=== PATIENT | male | born 1970 | race Caucasian/White ===

== ENCOUNTER → 2022-01-31 01:23 | Outpatient (CLI) | payer MEDICAID, SELFPAY ==
[2022-01-31 19:06] LABS: Basophils # 0.1 K/mm3 (0-0.2); Basophils % 0.9 % (0.1-2.0); Eosinophils # 0.2 K/mm3 (0.0-0.4); Eosinophils % 2.7 % (0.1-12.0); Hematocrit 43.2 % (42.0-52.0); Hemoglobin 14.6 g/dL (14.1-18.0); Lymphocytes # 1.6 K/mm3 (0.7-4.5); Lymphocytes % 29.1 % (10-50); Mean Corpuscular HGB Conc 33.7 g/dL (31.8-35.4); Mean Corpuscular Volume 86.1 fl (80-94); Mean Platelet Volume 9.9 fl (7.4-10.4); Monocytes # 0.4 K/mm3 (0.1-1.0); Monocytes % 6.5 % (1.7-9.3); Neutrophils # 3.4 K/mm3 (1.8-7.8); Neutrophils % 60.9 % (37.0-80.0); Platelet Count 161 K/mm3 (142-424); Red Blood Count 5.02 M/mm3 (4.60-6.20); White Blood Count 5.5 K/mm3 (4.8-10.8)
[2022-01-31 21:13] LABS: Chloride 108 mmol/L (98-107); Potassium 3.8 mmoL/L (3.5-5.1); Sodium 139 mmol/L (136-145)
[2022-01-31 21:16] LABS: Alanine Aminotransferase 26 U/L (12-78); Albumin Level 4.2 g/dl (3.5-5.0); Albumin/Globulin Ratio 1.6 (1.1-1.8); Alkaline Phosphatase 76 U/L (38-126); Anion Gap 9.8 mEq/L (5-15); Aspartate Amino Transferase 28 U/L (17-59); Bilirubin,Total 1.2 mg/dl (0.2-1.3); Blood Urea Nitrogen 13 mg/dl (9-20); Calcium 9.2 mg/dl (8.4-10.2); Carbon Dioxide 25 mmol/L (22.0-30.0); Chol/HDL Ratio 6.3 (1-3.5); Cholesterol 202 mg/dl (140-200); Estimated Glomerular Filt Rate 78 ml/min (>60); GFR (African American) 95 ML/MIN (>60); Globulin 2.7 g/dL (1.3-3.2); Glucose 95 mg/dl (74-100); HDL Cholesterol 32 mg/dl (40-60); Total Protein,Serum 6.9 g/dl (6.3-8.2); Triglycerides 358 mg/dl (30-150); VLDL Cholesterol 72 mg/dL (0-40)
[2022-01-31 22:37] LABS: Thyroid Stimulating Hormone < 0.02 uIU/mL (0.465-4.68)
== END ==
PROVIDERS: PCP Nurse Practitioner Family; Visit Provider Nurse Practitioner Family
DX: E03.9 Hypothyroidism, unspecified (principal)
CPT/HCPCS: 80053; 80061; 84443; 85025

== ENCOUNTER → 2022-06-17 23:45 | Outpatient (CLI) | payer MEDICAID, SELFPAY ==
[2022-06-17 18:16] LABS: Basophils # 0.1 K/mm3 (0-0.2); Basophils % 0.6 % (0.1-2.0); Eosinophils # 0.3 K/mm3 (0.0-0.4); Eosinophils % 3.1 % (0.1-12.0); Hematocrit 49.8 % (42.0-52.0); Lymphocytes # 2.1 K/mm3 (0.7-4.5); Lymphocytes % 24.2 % (10-50); Mean Corpuscular HGB Conc 34.1 g/dL (31.8-35.4); Mean Corpuscular Hemoglobin 29.6 pg (27.0-31.2); Mean Corpuscular Volume 86.7 fl (80-94); Mean Platelet Volume 9.4 fl (7.4-10.4); Monocytes # 0.5 K/mm3 (0.1-1.0); Monocytes % 5.7 % (1.7-9.3); Neutrophils # 5.9 K/mm3 (1.8-7.8); Neutrophils % 66.3 % (37.0-80.0); Platelet Count 162 K/mm3 (142-424); Red Blood Count 5.74 M/mm3 (4.60-6.20); White Blood Count 8.9 K/mm3 (4.8-10.8)
[2022-06-17 18:31] LABS: Chloride 103 mmol/L (98-107); Potassium 4.9 mmoL/L (3.5-5.1); Sodium 140 mmol/L (136-145)
[2022-06-17 18:34] LABS: Anion Gap 16.9 mEq/L (5-15); Blood Urea Nitrogen 19 mg/dl (9-20); Carbon Dioxide 25 mmol/L (22.0-30.0); Estimated Glomerular Filt Rate 70 ml/min (>60); GFR (African American) 84 ML/MIN (>60)
[2022-06-17 18:35] LABS: Calcium 9.4 mg/dl (8.4-10.2); Glucose 82 mg/dl (74-100)
[2022-06-17 19:05] LABS: Thyroid Stimulating Hormone 2.71 uIU/mL (0.465-4.68)
== END ==
PROVIDERS: PCP Family Medicine; Visit Provider Family Medicine
DX: Z00.00 Encounter for general adult medical examination without abnormal findings (principal); E03.9 Hypothyroidism, unspecified; I10 Essential (primary) hypertension; R80.9 Proteinuria, unspecified
CPT/HCPCS: 80048; 84443; 85025

== ENCOUNTER 2024-09-13 14:31 | Outpatient (CLI) | payer OTHER, MEDICAID, SELFPAY ==
--- NOTE | 2024-09-13 14:38 | XR_ITS ---
FINAL REPORT CLINICAL HISTORY: Left Foot Pain FINDINGS: LEFT FOOT Three views of the left foot demonstrate no acute fracture or dislocation. The visualized joint spaces are normally aligned. There are moderate degenerative changes of the hind and midfoot. There is mild calcaneal spurring. The soft tissues are unremarkable. IMPRESSION: No acute bony abnormality. Reviewed, Interpreted and Dictated by Johnny Zavala MD Transcribed by Jacquie Loera Authenticated and [facility]
--- OUTSIDE RECORDS SUMMARY | 2024-09-13 14:38 | XMS_ITS | Encounter Summary ---
Author Organization Healthcare Address [address] [place] [address] Care Team Providers Care Press Tender Short Goods Name Role Phone Gene Ordonez MD Primary Care Provider Nini vailable Reason for Visit * Reason Comments Med Refill Encounter Details Date Type Department Care Team ([facility] Contact Info) Description 06/10/2024 Refill [facility] [place] [address] [address] [facility] [address] [facility], [address] [place] [address] Sofia Novak MD [address] [phone] Social History Tobacco Use Types Packs/Day Years Used Date Smoking Tobacco: Never Assessed Humiliation, Afraid, Rape, and Kick questionnair e Answer Date Recorded Within the last year, have y ou been afraid of your partner or ex-partner? No 06/04/2023 Within the last year, have y ou been humiliated or emotionally abused in other ways by your partner or ex-partner? No Within the last year, have y ou been kicked, hit, slapped, or otherwise physically hurt by your partner or ex-partner? No 06/04/2023 Within the last year, have y ou been raped or forced to have any kind of sexual activity by your partner or ex-partner? No 06/04/2023 Hunger Vital Sign Answer Date Recorded Within the past 12 months, y ou worried that your food would run out before you got the money to buy more. Never true 06/04/19 24 Within the past 12 months, t he food you bought just didn't last and you didn't have money to get more. Never true 06/04/2023 PRAPARE - Transportation Answer Date Re corded In the past 12 months, has l ack of transportation kept you from medical appointments or from getting medications? No 05/2023 In the past 12 months, has l ack of transportation kept you from meetings, work, or from getting things needed for daily living? No 06/04/2023 Housing Stability Vital Sign Answer Wally e Recorded In the last 12 months, was t here a time when you were not able to pay the mortgage or rent on time? No 06/04/2023 Number of Places Lived in the Last Year Not on f ile 06/04/2023 In the last 12 months, was t here a time when you did not have a steady place to sleep or slept in a fci (including now)? No 06/04/2023 Utilities Answer Date Recorded In the past 12 months has th e electric, gas, oil, or water company threatened to shut off services in your home? No 06/04/2023 Sex and Gender Information Value Date Recorded Sex Assigned at Not on file Legal Sex Male 8:57 PM EDT Gender Identity Not on file Sexual Orientation Not on file documented as of this encounter Plan of Treatment Not on file documented as of this encounter Visit Diagnoses Not on filedocumented in this encounter Additional Health Concerns Assessment Noted Time A Body Mass Index follow-up plan has been documented for the patient 06/04/2023 3:42 PM EDT documented as of this encounter Care Teams Press Tender Short Goods Relationship Specialty Start Date End Date Gene Ordonez MD PCP - General Family Medicine 06/03/23 documented as of this encounter
--- OUTSIDE RECORDS SUMMARY | 2024-09-13 14:38 | XMS_ITS | Encounter Summary ---
Author Organization Healthcare Address [address] [place] [address] Care Team Providers Care Assistance Coordinator Name Role Phone Gene Ordonez MD Primary Care Provider Nini vailable Reason for Visit * Reason Comments Med Refill Encounter Details Date Type Department Care Team ([facility] Contact Info) Description 07/13/2024 Refill [facility] [place] [phone] [address] [facility], [address] [place] [address] Sofia Novak MD [address] [phone] Social History Tobacco Use Types Packs/Day Years [...] place to sleep or slept in a care home (including now)? No 06/04/2023 Utilities Answer Date [...] documented as of this encounter Care Teams Assistance Coordinator Relationship Specialty Start Date End Date Gene Ordonez MD PCP - General Family Medicine 06/03/23 documented as of this encounter
--- OUTSIDE RECORDS SUMMARY | 2024-09-13 14:38 | XMS_ITS | Clinical Summary ---
Author Organization Healthcare Address [address] [place] [address] Care Team Providers Care Premium Note Interest Calculator Clerk Name Role Phone Gene Ordonez MD Primary Care Provider Nini vailable Allergies No known active allergies Medications levothyroxine (Synthroid, Levoxyl) 150 MCG tablet Take 1 tablet (150 mcg) by mouth 1 (one) time each day before breakfast. Active atorvastatin (Lipitor) 80 MG tablet Take 1 tablet (80 mg) by mouth every night. 90 tablet 3 06/04/2023 Active aspirin 81 MG chewable tablet Chew 1 tablet (81 mg) 1 (one) time each day. 90 tablet 3 06/05/2023 Active Active Problems Problem Noted Date Diagnosed Date Syncope and collapse 06/03/2023 Encounters Date Type Department Care Team Description 07/13/2024 Refill [facility] [place] [address] [facility], [address] [place] [address] Sofia Novak MD from Last 3 Months Social History Tobacco Use Types Packs/Day Years [...] place to sleep or slept in a long term (including now)? No 06/04/2023 Utilities Answer Date Recorded In the past 12 months has th e electric, gas, oil, or water company threatened to shut off services in your home? No 06/04/2023 Sex and Gender Information Value Date Recorded Sex Assigned at Not on file Legal Sex Male 8:57 PM EDT Gender Identity Not on file Sexual Orientation Not on file Last Filed Vital Signs Vital Sign Reading Time Taken Comments Blood Pressure 144/97 06/04/2023 12:49 PM EDT Pulse 78 06/04/2023 3:00 PM EDT Temperature 36.8 C (98.3 F) 06/04/2023 12:49 PM EDT Respiratory Rate 19 06/04/2023 3:00 PM EDT Oxygen Saturation 93% 06/04/2023 3:00 PM EDT Inhaled Oxygen Concentration - - Weight 145 kg (320 lb) 06/03/2023 12:56 PM EDT Height 188 cm (6' 2 ) 06/03/2023 12:56 PM EDT Body Mass Index 41.09 06/03/2023 12:56 PM EDT Plan of Treatment Health Maintenance Due Date Last Done Comments [facility]-Depression Screening 1968 [facility]-Infant/Child/Adol SDOH Screenings 1968 [id number] Vaccine (#1) 1973 [facility]- SDOH Screenings 1986 [facility]-Adult SDOH Screenings 1986 [facility]-DTaP,Tdap,and Td Vaccine s (1 - Tdap) 05/11/1987 [facility]-Hepatitis B Vaccines (1 of 3 - 19+ 3-dose series) 05/11/1987 CT Colonography 2013 Colonoscopy 2013 FIT-DNA 2013 FIT 2013 FOBT 2013 Sigmoidoscopy 2013 [facility]-Colorectal Cancer Screening 2013 [facility]-Pneumococcal Vaccine: 50 + Years (1 of 1 - PCV) 2018 [facility]-Zoster Vaccines (1 of 2) 2018 [facility]-Influenza Vaccine (#1) 2024 02/08/2019 [facility]-HIV Screening Completed 06/03/2023 [facility]-Hepatitis C Screening Completed 06/03/2023 [facility]-Obesity Intervention Completed 06/03/2023 HPV Vaccines Aged Out No longer eligi ble based on patient's age to complete this topic [facility]-HIB Vaccines Aged Out No longer e ligible based on patient's age to complete this topic [facility]-Hepatitis A Vaccines Aged Out No longer eligible based on patient's age to complete this topic [facility]-IPV Vaccines Aged Out No longer e ligible based on patient's age to complete this topic [facility]-Rotavirus Vaccines Aged Out No lo nger eligible based on patient's age to complete this topic Procedures Procedure Name Priority Date/Time Associated Diagnosis Comments HEPATITIS C ANTIBODY - ED W/REFLEX TO HCV QUANT PCR STAT 06/03/2023 1:22 PM EDT ED HIV 1/2 ANTIBODY/ANTIGEN SCREEN WITH REFLEX TO HIV I/II DIFFERENTIATION STAT 06/03/2023 1:22 PM EDT from Last 3 Months or Most Recently Relevant to Health Maintenance Results * ED HIV 1/2 Antibody/Antigen Screen w/Reflex to HIV 1/2 Differentiation (06/03/2023 1:22 PM EDT) Pathologist [facility] HIV 1 & 2 Antibody/Antigen Screen Non Reactive Non Reactive 06/03/2023 2:30 PM EDT [facility] Comment:Screening for HIV 1 & 2 antibodies, and P24 antigen is NONREACTIVE. No confirmatory testing is required. Blood Venous blood specimen / Unknown Venipuncture / Unknown 06/03/2023 1:22 PM EDT 06/03/2023 1:50 PM EDT Bassem Mccarthy MD LAB BLOOD ORDERABLES Final R esult Performing Organization Address City/[facility] Co de Phone Number [facility]ALTH[facility]ARE [facility] [address] [place] [address] * Hepatitis C Antibody - ED (06/03/2023 1:22 PM EDT) [facility] Hepatitis C Antibody Negative Negative 06/03/2023 2:30 PM EDT [facility] Blood Venous blood specimen / Unknown Venipuncture / Unknown 06/03/2023 1:22 PM EDT 06/03/2023 1:50 PM EDT Bassem Mccarthy MD LAB BLOOD ORDERABLES Final R esult Performing Organization Address City/State/[facility] Co de Phone Number [facility] [address] [place] [address] from Last 3 Months or Most Recently Relevant to Health Maintenance Insurance Advance Directives * Full Code (Latest Code Status on File) Date Activated Date Inactivated Comments 06/03/2023 9:14 PM 06/04/2023 6:01 PM Question Answer Comments Patient has decision-making capacity? Yes Care Teams Premium Note Interest Calculator Clerk Relationship Specialty Start Date End Date Gene Ordonez MD PCP - General Family Medicine 06/03/23
== END 2024-09-13 23:59 | disposition home or self-care (01) ==
LOC: RAD 14:35
PROVIDERS: Visit Provider Physician Assistant
DX: M79.672 Pain in left foot (principal)
CPT/HCPCS: 73630

== ENCOUNTER 2024-12-22 10:40 | Emergency (ER) | payer SELFPAY ==
[2024-12-22] VITALS (12 sets, daily range): BP systolic 105–176; BP diastolic 68–125; PULSE 57–83; RESP 18; TEMP 37.1–37.2; O2SAT 95–100; BMI 29.3
[2024-12-22 10:50] LABS: Microscopic, Urine URINE MICROSCOPIC (MICROSCOPIC)
[2024-12-22 10:53] LABS: Bilirubin,Urine Negative (Negative); Color,Urine YELLOW (Yellow); Glucose,Urine (UA) Negative (Negative); Ketones,Urine TRACE (Negative); Leukocyte Esterase,Urine Negative (Negative); PH,Urine 6.0 (5.0-8.5); Protein,Urine 1+ (Negative); Specific Gravity, Urine 1.025 (1.005-1.030); Urobilinogen,Urine 0.2 EU/dl (0.2)
[2024-12-22 11:02] LABS: Bacteria,Urine Trace /lpf; Squamous Epithelial Cell,Urine Occasional #/hpf (0-5)
--- NOTE | 2024-12-22 11:04 | CT_ITS ---
FINAL REPORT TECHNIQUE: IV contrast enhanced exam This study was performed with techniques to keep radiation doses as low as reasonably achievable, (ALARA). Individualized dose reduction techniques using automated exposure control or adjustment of mA and/or kV according to the patient''s size were employed. CLINICAL HISTORY: Bloody stools, bloating, belching COMPARISON: None FINDINGS: Abdomen: No acute density is seen within the lung bases. The gallbladder is unremarkable. There is mild enlargement of the left adrenal gland, probably due to hyperplasia or adenoma. Benign-appearing bilateral renal cysts are noted. The remaining solid abdominal organs are unremarkable. No bowel obstruction is present. There is no free air. No fluid collection is seen. There is no adenopathy. Pelvis: The appendix is normal. Mild sigmoid diverticulosis is noted. The urinary bladder and prostate are unremarkable. There is no free fluid. No pelvic mass is seen. IMPRESSION: No acute findings. Reviewed, Interpreted and Dictated by Johnny Zavala MD Transcribed by Nishi Lopez Authenticated and [facility]
--- NOTE | 2024-12-22 11:04 | XR_ITS ---
FINAL REPORT CLINICAL HISTORY: Belching, left shoulder pain FINDINGS: No acute pulmonary opacity is present. There is no evidence of effusion or pneumothorax. Mediastinum is unremarkable. Heart size is normal. IMPRESSION: No acute abnormality. Reviewed, Interpreted and Dictated by Johnny Zavala MD Transcribed by Alejandrina Bae Authenticated and [facility]
--- OUTSIDE RECORDS SUMMARY | 2024-12-22 11:05 | XMS_ITS | Encounter Summary ---
Author Organization Healthcare Address [address] [place] [address] Care Team Providers Care Plant Physiology Teacher Name Role Phone Gene Ordonez MD Primary Care Provider Nini vailable Reason for Visit * Reason Comments Med Refill Encounter Details Date Type Department Care Team ([facility] Contact Info) Description 07/13/2024 Refill [facility] [place] [address] [facility], [address] [place] [address] Sofia Novak MD [address] [phone] Social History Tobacco Use Types Packs/Day Years [...] place to sleep or slept in a snf (including now)? No 06/04/2023 Utilities Answer Date [...] documented as of this encounter Care Teams Plant Physiology Teacher Relationship Specialty Start Date End Date Gene Ordonez MD PCP - General Family Medicine 06/03/23 documented as of this encounter
--- OUTSIDE RECORDS SUMMARY | 2024-12-22 11:05 | XMS_ITS | Encounter Summary ---
Author Organization Healthcare Address [address] [place] [address] Care Team Providers Care Sole Edge Inker Machine Name Role Phone Gene Ordonez MD Primary Care Provider Nini vailable Reason for Visit * Reason Comments Med Refill Encounter Details Date Type Department Care Team ([facility] Contact Info) Description 06/10/2024 Refill [facility] [place] [address] [facility], [address] [place] [address] Sofia Novak MD [address] [phone] Social History Tobacco Use Types Packs/Day Years [...] place to sleep or slept in a correction (including now)? No 06/04/2023 Utilities Answer Date [...] documented as of this encounter Care Teams Sole Edge Inker Machine Relationship Specialty Start Date End Date Gene Ordonez MD PCP - General Family Medicine 06/03/23 documented as of this encounter
--- OUTSIDE RECORDS SUMMARY | 2024-12-22 11:05 | XMS_ITS | Clinical Summary ---
Author Organization Healthcare Address [address] [place] [address] Care Team Providers Care Data Migration Lead Name Role Phone Gene Ordonez MD Primary [...] 90 tablet 3 06/05/2023 Active Active Problems No known active problems Resolved Problems Problem Noted Date Diagnosed Date Resolved Date Syncope and collapse 06/03/2023 025 Social History Tobacco Use Types Packs/Day Years [...] place to sleep or slept in a skilled nursing (including now)? No 06/04/2023 Utilities Answer Date [...] [facility]-Depression Screening 1968 [facility]-Infant/Child/Adol SDOH Screenings 1968 [id number] Vaccine (#1) 1973 [facility]- SDOH Screenings 1986 [...] HIV 1/2 Differentiation (06/03/2023 1:22 PM EDT) HIV 1 & 2 Antibody/Antigen Screen Non Reactive Non Reactive 06/03/2023 2:30 PM EDT [facility] Comment:Screening for HIV 1 & 2 antibodies, and P24 antigen is NONREACTIVE. No confirmatory testing is required. Blood Venous blood specimen / Unknown Venipuncture / Unknown 06/03/2023 1:22 PM EDT 06/03/2023 1:50 PM EDT Bassem Mccarthy MD LAB BLOOD ORDERABLES Final R esult [facility] [address] [place] [address] * Hepatitis C Antibody - ED (06/03/2023 1:22 PM EDT) [facility] Hepatitis C Antibody Negative Negative 06/03/2023 2:30 PM EDT [facility] Blood Venous blood specimen / Unknown Venipuncture / Unknown 06/03/2023 1:22 PM EDT 06/03/2023 1:50 PM EDT Bassem Mccarthy MD LAB BLOOD ORDERABLES Final R esult Performing Organization Address City/[facility] Co de Phone Number [facility]ALTH[facility] [address] [place] [address] from Last 3 Months or Most Recently Relevant to [place] [address] Advance Directives * Full Code (Latest Code Status on File) Date Activated Date Inactivated Comments 06/03/2023 9:14 PM 06/04/2023 6:01 PM Question Answer Comments Patient has decision-making capacity? Yes Care Teams Data Migration Lead Relationship Specialty Start Date End Date Gene Ordnoez MD PCP - General Family Medicine 06/03/23
--- NOTE | 2024-12-22 11:07 | [facility].EDGENADL ---
Discharge Plan Disposition Patient Disposition: Home, Self-Care Condition: Fair Prescriptions Prescriptions: New famotidine [Pepcid] 20 mg tablet 20 mg PO DAILY Qty: 30 0RF No Action promethazine 25 mg tablet 25 mg PO TID PRN (Reason: nausea and vomiting) Qty: 20 0RF atorvastatin 80 mg tablet 80 mg PO HS Qty: 90 0RF diclofenac sodium 75 mg tablet,delayed release (DR/EC) 75 mg PO BID Qty: 30 0RF levothyroxine 150 mcg tablet 150 mcg PO DAILY Qty: 90 0RF lisinopril 20 mg tablet See Rx Instructions .ROUTE .COMPLEX Qty: 90 1RF Dose Instruction: TAKE 1 TABLET BY MOUTH DAILY Rx Instructions: TAKE 1 TABLET BY MOUTH DAILY Referrals Follow up/Referrals: Cody Adan II, MD [Staff Physician, Gastroenterology] - See instructions Gene Ordonez MD [Primary Care Provider, Internal Medicine] - See instructions Activity Restrictions/Add. Instructions Additional Instructions/Restrictions: Your workup today although revealed mildly elevated bilirubin but CT scan is reassuring. I am referring you to Dr. Adan with gastroenterology for follow-up regarding your symptoms. Call their office to schedule an appointment. I am prescribing Pepcid for you to take to help with reflux as this could be contributing to your symptoms. If you develop any new or worsening symptoms, or if you become concerned for your health for any reason, return to the emergency department for evaluation Clinical Impressions Clinical Impression: Belching, Unintentional weight loss, Elevated bilirubin Print Language Print Language: Belarusian Discharge ED Provider: Shaheed Washington Adult HPI General Chief complaint: Weakness Stated complaint: weight loss, nausea, blood in stool, chills Time Seen by Provider: 12/22/24 10:52 Mode of Arrival: Ambulatory Source of Information: Patient Description of Symptoms (Recalled from ER Triage Doc. by RN): Patient with multiple complaints. States he saw his PCP approx 2 weeks ago with the complaint of blood in his stool and jaw pain. 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 Reports returning to his doctor yesterday with the complaint of losing 20 pounds in 2 weeks and being cold all the time. Today he states that he is also having a lot of indigestion, nausea and feeling cold all the time. History of Present Illness HPI narrative: Neri Templeton is a 54y male with a history of high blood pressure, high cholesterol, hypothyroidism on levothyroxine, tonsillectomy who presents to the emergency department for complaints of belching, bloody stool. Patient states over the last 2 weeks, he has felt like there is a significant mount of air in his chest causing him to burp constantly. This causes some discomfort but he denies any burning in his throat or abdominal pain or chest pain. He reports that 2 days ago, he had bright red blood in his stool, however did not have blood in his stool yesterday. He has not had any diarrhea. He checked himself for hemorrhoids and did not appreciate any hemorrhoids. He reports intermittent abdominal cramping and bloating but denies any current abdominal pain. He does state that he had been over 300 pounds over a year ago and he went on a diet and lost approximately 100 pounds intentionally, however over last 2 weeks, he has lost 20 pounds unintentionally. He has not on any weight loss medications. He reports he also has left-sided jaw pain and shoulder pain and is being followed for that they believe that is arthritis and have sent him to a specialist for steroid injections, however he does not currently have insurance and cannot get this done. He does state that he was seen by his PCP yesterday was put on promethazine. Related Data Previous Rx's ?Medication ?Instructions ?Recorded atorvastatin 80 mg tablet 80 mg PO HS #90 tabs 12/15/24 diclofenac sodium 75 mg 75 mg PO BID #30 tabs 12/15/24 tablet,delayed release levothyroxine 150 mcg tablet 150 mcg PO DAILY #90 tabs 12/15/24 lisinopril 20 mg tablet See Rx Instructions .Route 12/15/24 .COMPLEX #90 tabs promethazine 25 mg tablet 25 mg PO TID PRN nausea and 12/21/24 vomiting #20 tabs famotidine 20 mg tablet (Pepcid) 20 mg PO DAILY #30 tabs 12/22/24 Allergies Allergy/AdvReac Type Severity Reaction Status Date / Time No Known Allergies Allergy Verified 12/21/24 13:48 [facility] Disclaimer: The information contained in this section may have been updated after the patient was seen, as this information can be updated by other users. Medical History High cholesterol High blood pressure Colon cancer screening Hypothyroidism Surgical History History of placement of ear tubes History of tonsillectomy Family History Mother Cancer Other Family history of hypothyroidism Family history of leukemia Family history of myocardial infarction Social History Smoking Status: Current every day smoker tobacco type: e-cigarettes alcohol intake: never substance use type: denies use current occupational status: employed Travel in the last 8 weeks?: None household members: significant other housing: house lives independently: Yes marital status: single caffeine: Yes special miguel needs: No agree to transfusion: No do you feel safe at home: Yes victim of physical abuse: No victim of emotional abuse: No victim of sexual abuse: No would you like helpful sources: No Have you lived/traveled outside [place] in past 30 days?: No Contact w/someone who lives/traveled outside [place] past 30 days?: No Exposure to someone with infectious disease in past 14 days?: No Do you have a fever (greater than 100.4 F or 38 C)?: No Have you tested positive for COVID-19?: No Exposed to someone with COVID-19 in past 14 days?: No Do you have a sore throat?: No Do you have a cough?: No Do you have any weakness?: No Do you have any diarrhea?: No Are you experiencing any unusual bleeding?: No Do you have any muscle aches/pain?: No Do you have any abdominal pain?: No Are you experiencing loss of taste or smell?: No Other Medical History Have you received the Pneumonia Vaccine: Yes ROS Obtained: Yes Systems reviewed as appropriate & no additional complaints except as documented Physical Exam General General appearance: alert and in no apparent distress Head Head exam: atraumatic Eye Eye exam: Present normal appearance ENT ENT exam: Present normal external ear exam Neck Neck exam: Present full ROM Chest Chest inspection: Present symmetric chest wall rise Respiratory Respiratory exam: Present normal lung sounds bilaterally; Absent respiratory distress, wheezes or stridor Cardiovascular Cardiovascular exam: Present regular rate and normal rhythm Abdominal Exam Abdominal exam: Present soft; Absent tenderness, guarding or rigidity exam: Present deferred Extremities Exam Extremities exam: Present normal inspection Back Exam Back exam: Present normal inspection Neurological Exam Neurological exam: Present alert and oriented X3 Psychiatric Psychiatric exam: Present normal affect Skin Skin exam: Present warm and dry Medical Decision Making Medical Records Screening: Per USPSTF and CDC recommendations, given the prevalence of disease in our region, it is our hospital?s policy to screen for HIV and viral Hepatitis for all patients aged 18 and over and those with ongoing risk factors. Siva Inquiry Pt receiving controlled substance: No Vital Signs: 12/22/24 10:50 12/22/24 11:00 12/22/24 11:10 Temperature 98.7 F Temperature Source Oral Pulse Rate 83 63 Pulse Rate [Radial] 80 Respiratory Rate 18 Blood Pressure 160/124 H 164/125 H Blood Pressure [Right Arm] 176/117 H Blood Pressure Mean [Right Arm] 136 Blood Pressure Source [Right Arm] Automatic Cuff Blood Pressure Position [Right Arm] Sitting 02 Sat by Pulse Oximetry 96 100 95 Oxygen Delivery Method Room Air 12/22/24 12:30 12/22/24 12:39 12/22/24 12:51 Temperature Temperature Source Pulse Rate 57 L 65 71 Pulse Rate [Radial] Respiratory Rate Blood Pressure 125/77 125/77 117/75 Blood Pressure [Right Arm] Blood Pressure Mean [Right Arm] Blood Pressure Source [Right Arm] Blood Pressure Position [Right Arm] 02 Sat by Pulse Oximetry 96 98 98 Oxygen Delivery Method 12/22/24 13:00 12/22/24 13:10 12/22/24 13:20 Temperature Temperature Source Pulse Rate 61 65 73 Pulse Rate [Radial] Respiratory Rate Blood Pressure 114/83 107/68 L 127/97 H Blood Pressure [Right Arm] Blood Pressure Mean [Right Arm] Blood Pressure Source [Right Arm] Blood Pressure Position [Right Arm] 02 Sat by Pulse Oximetry 98 98 98 Oxygen Delivery Method 12/22/24 13:30 12/22/24 13:40 12/22/24 14:09 Temperature 98.9 F Temperature Source Pulse Rate 73 73 66 Pulse Rate [Radial] Respiratory Rate 18 Blood Pressure 119/79 105/84 L 116/73 Blood Pressure [Right Arm] Blood Pressure Mean [Right Arm] Blood Pressure Source [Right Arm] Blood Pressure Position [Right Arm] 02 Sat by Pulse Oximetry 99 99 Oxygen Delivery Method Lab Data Lab Results 12/22/24 10:41: Urine Color Yellow, Urine Appearance Clear, Urine pH 6.0, Ur Specific [place] 1.025, Urine Protein 1+ A, Urine Glucose (UA) Negative, Urine Ketones Trace, Urine Blood Negative, Urine Nitrate Negative, Urine Bilirubin Negative, Urine Urobilinogen 0.2, Ur Leukocyte Esterase Negative, Urine RBC None, Urine WBC None, Ur Squamous Epith Cells Occasional, Urine Bacteria Trace 12/22/24 10:47: WBC 6.5, RBC 5.13, Hgb 14.6, Hct 43.1, MCV 84.0, MCH 28.5, MCHC 33.9, RDW 14.4, Plt Count 157, MPV 11.3 H, Neut % (Auto) 65.0, Lymph % (Auto) 24.7, [place] % (Auto) 5.5, Eos % (Auto) 4.0, Baso % (Auto) 0.6, Neut # (Auto) 4.3, Lymph # (Auto) 1.6, [place] # (Auto) 0.4, Eos # (Auto) 0.3, Baso # (Auto) 0.0, PT 10.9, INR 0.98, APTT 25.6, Sodium 141, Potassium 4.4, Chloride 104, Carbon Dioxide 27, Anion Gap 14.4, BUN 21 H, Creatinine 1.20, Estimated Creat Clear 104, Estimated GFR 63, Est GFR ( Amer) 76, Glucose 101 H, Calcium 9.1, Total Bilirubin 1.9 H, AST 24, ALT 23, Alkaline Phosphatase 67, Troponin I < 0.01, NT-Pro-B Natriuret Pep 98.0, Total Protein 8.0, Albumin 4.5, Globulin 3.5 H, Albumin/Globulin Ratio 1.3, Lipase 111, TSH 2.79, HCV Ab SHAWN w/Rflx PCR Qn Negative 12/22/24 10:47 12/22/24 10:47 Orders (Tests/Meds): ED MEDICATIONS Discontinued Medications Generic Name Dose Route Start Last Admin Trade Name Freq PRN Reason Stop Dose Admin Famotidine 20 mg 12/22/24 11:09 12/22/24 12:06 Famotidine 20mg/2ml Vial IV 12/22/24 11:10 20 mg ONCE ONE Administration Iopamidol 75 ml 12/22/24 11:23 12/22/24 11:23 Iopamidol-370 (76%);100ml Bottle IV 12/22/24 11:24 75 ml ONCE ONE Administration Sodium Chloride 8 ml 12/22/24 11:09 Sodium Chloride 0.9% 10ml Vial IV 01/21/25 11:08 NEEDED PRN dilute pepcid Sodium Chloride 10 ml 12/22/24 11:23 12/22/24 11:23 Sodium Chloride 0.9% 10ml Syr (Rad Only) IV 12/22/24 11:24 10 ml ONCE ONE Administration ORDERS Category Date Time Status CT abdomen pelvis w con Stat Cat Scan 12/22/24 11:04 Completed CXR --portable [XR chest portable] Stat Exams 12/22/24 11:04 Completed BNP [NT Pro Brain Natriuretic Pep.] Stat Lab 12/22/24 10:47 Completed CBC w/Auto Diff [Complete Blood Count Auto Diff] Stat Lab 12/22/24 10:47 Completed CMP [Comprehensive Metabolic Panel] Stat Lab 12/22/24 10:47 Completed Free T4 (Free Thyroxine) Stat Lab 12/22/24 10:47 Received HIV Combo Stat Lab 12/22/24 10:47 Received Hepatitis C Ab Qual. W/ RFX Stat Lab 12/22/24 10:47 Completed Lipase Stat Lab 12/22/24 10:47 Completed PT INR [Prothrombin Time INR] Stat Lab 12/22/24 10:47 Completed PTT [Activated Partial Thrombo Time] Stat Lab 12/22/24 10:47 Completed TSH [Thyroid Stimulating Hormone] Stat Lab 12/22/24 10:47 Completed Troponin I Stat Lab 12/22/24 10:47 Completed UA [Urinalysis and Microscopic] Stat Lab 12/22/24 10:41 Completed Medical Decision Narrative: Neri Templeton is a 54y male with a history of high blood pressure, high cholesterol, hypothyroidism on levothyroxine, tonsillectomy who presents to the emergency department for complaints of belching, bloody stool. Patient states over the last 2 weeks, he has felt like there is a significant mount of air in his chest causing him to burp constantly. This causes some discomfort but he denies any burning in his throat or abdominal pain or chest pain. He reports that 2 days ago, he had bright red blood in his stool, however did not have blood in his stool yesterday. He has not had any diarrhea. He checked himself for hemorrhoids and did not appreciate any hemorrhoids. He reports intermittent abdominal cramping and bloating but denies any current abdominal pain. He does state that he had been over 300 pounds over a year ago and he went on a diet and lost approximately 100 pounds intentionally, however over last 2 weeks, he has lost 20 pounds unintentionally. He has not on any weight loss medications. He reports he also has left-sided jaw pain and shoulder pain and is being followed for that they believe that is arthritis and have sent him to a specialist for steroid injections, however he does not currently have insurance and cannot get this done. He does state that he was seen by his PCP yesterday was put on promethazine. On arrival, patient is hemodynamically stable, afebrile, in no acute distress, breathing comfortably on room air. Physical exam shows an overall well appearing male in no distress. Breath sounds clear bilaterally. ABdomen is grossly non-tender and non peritonitic. The remainder of his exam is grossly unremarkable. Differential diagnosis includes, but is not limited to: malignancy, ACS, GERD, peptic ulcer disease, GI bleed, hemorrhoids, hyperthyroidism, among others. The most morbid conditions were considered and workup was based on these. Workup in the emergency department included: CBC with differential, coagulation studies, troponin, BNP, lipase, TSH/free T4, urinalysis, chest x-ray, CT abdomen pelvis with IV contrast. Patient's workup is grossly unremarkable except for mildly elevated bilirubin at 1.9 but liver enzymes otherwise within normal limits. Urine with 1+ protein but no evidence of infection and only trace ketones. Chest x-ray interpreted by me personally. No focal consolidation, no pneumothorax, no widened mediastinum, no enlargement of the cardiac silhouette. Unremarkable chest x-ray. See radiology report for details. Patient's CT abdomen pelvis with interpreted by me personally. No masses are appreciated. Unremarkable CT abdomen pelvis. See radiology report for details. Patient was treated with IV Pepcid during his stay. On reassessment, he states that his belching seems to have improved and now he is having flatulence, which is unusual for him. He feels like the Pepcid may have helped some. Given there is no emergent pathology on patient's workup today, I do feel he is appropriate for discharge at this time. Will refer him to Dr. Adan with gastroenterology given his mildly elevated bilirubin in the setting of recurrent belching and occasional abdominal pain and weight loss. Return precautions were given. All questions were answered. He demonstrated understanding and was in agreement this plan. He was then discharged from the emergency department in stable condition. Critical Care Critical Care Time Critical Care Time: No
[2024-12-22 11:13] LABS: Chloride 104 mmol/L (98-107); Potassium 4.4 mmoL/L (3.5-5.1); Sodium 141 mmol/L (136-145)
[2024-12-22 11:15] LABS: Hematocrit 43.1 % (42.0-52.0); Hemoglobin 14.6 g/dL (14.1-18.0); Immature Granulocytes % 0.2 %; Mean Corpuscular HGB Conc 33.9 g/dL (31.8-35.4); Mean Corpuscular Hemoglobin 28.5 pg (27.0-31.2); Mean Corpuscular Volume 84.0 fl (80-94); Nucleated Red Blood Cells % 0 %; Platelet Count 157 K/mm3 (142-424); Red Blood Count 5.13 M/mm3 (4.60-6.20); Red Cell Distribution Width-SD 43.8 fL; White Blood Count 6.5 K/mm3 (4.8-10.8)
[2024-12-22 11:16] LABS: Alanine Aminotransferase 23 U/L (12-78); Alkaline Phosphatase 67 U/L (38-126); Anion Gap 14.4 mEq/L (5-15); Aspartate Amino Transferase 24 U/L (17-59); Bilirubin,Total 1.9 mg/dl (0.2-1.3); Blood Urea Nitrogen 21 mg/dl (9-20); Carbon Dioxide 27 mmol/L (22.0-30.0); Creatinine Clearance Estimated 104 mL/min (50-200); Creatinine,Serum 1.20 mg/dl (0.66-1.25); Estimated Glomerular Filt Rate 63 ml/min (>60); GFR (African American) 76 ML/MIN (>60); Lipase 111 U/L (23-300); Total Protein,Serum 8.0 g/dl (6.3-8.2)
[2024-12-22 11:17] LABS: Calcium 9.1 mg/dl (8.4-10.2); Glucose 101 mg/dl (74-100)
[2024-12-22 11:23] LABS: Activated Partial Thrombo Time 25.6 seconds (22.8-30.6); INR 0.98 (0.9-1.1); Prothrombin Time 10.9 seconds (10.1-12.5)
[2024-12-22] MEDS: IOPAMIDOL-370 (76%);100ML BOTTLE 75 ML IV (11:23)
[2024-12-22] MEDS: SODIUM CHLORIDE 0.9% 10ML SYR (RAD ONLY) 10 ML IV (11:23)
[2024-12-22 11:26] LABS: NT Pro Brain Natriuretic Pep. 98.0 pg/mL (0-125)
[2024-12-22 11:39] LABS: Troponin I < 0.01 ng/ml (0.00-0.034)
[2024-12-22] MEDS: FAMOTIDINE 20MG/2ML VIAL 20 MG IV (12:06)
[2024-12-22 12:16] LABS: Hepatitis C Ab Qual. W/ RFX NEGATIVE (Negative)
[2024-12-22 13:05] LABS: Albumin Level 4.5 g/dl (3.5-5.0); Albumin/Globulin Ratio 1.3 (1.1-1.8); Globulin 3.5 g/dL (1.3-3.2); Thyroid Stimulating Hormone 2.79 uIU/mL (0.465-4.68)
[2024-12-22 19:20] LABS: Free T4 (Free Thyroxine) 1.40 ng/dl (0.78-2.19)
== END 2024-12-22 14:20 | disposition home or self-care (01) ==
PROVIDERS: Emergency Provider Student in an Organized Health Care Education/Training Program; PCP Family Medicine
DX: R11.0 Nausea (principal); R14.2 Eructation; R63.4 Abnormal weight loss; R17 Unspecified jaundice; I10 Essential (primary) hypertension; E78.5 Hyperlipidemia, unspecified; E03.9 Hypothyroidism, unspecified; F17.290 Nicotine dependence, other tobacco product, uncomplicated
CPT/HCPCS: 71045; 74177; 80053; 81001; 83690; 83880; 84439; 84443; 84484; 85025; 85610; 85730; 86803; 87389; 96374; 99284; 99285; J1308; Q9967